=== PATIENT | male | born 1950 | race Caucasian/White ===

== ENCOUNTER 2020-01-26 14:04 | Emergency (ER) | payer MEDICARE, BC ==
[~2020-01-26] VITALS: Ht 180.3 cm; Wt 102.1 kg
[2020-01-26 14:05] VITALS: BP 146/82
[2020-01-26] MEDS ORDERED: oxyCODONE/APAP (5/325 MG) 1 UDTAB TABLET ONE (15:58)
[2020-01-26] MEDS ORDERED: oxyCODONE/APAP (5/325 MG) 1 UDTAB TABLET PO ONE (16:00)
--- NOTE | 2020-01-26 16:35 | NUR ---
Patient Dc home instruction given agrees to follow up PMD in 2 days noted sugar tong splint Rt arm.hand able to move fingers patient apprecaited and request for MD for more concern Dr. Briseno aware .
--- NOTE | 2020-01-26 16:44 | NUR ---
Patient discharged to home in stable condition. Written and verbal after care instructions given. Patient verbalizes understanding of instruction.
== END 2020-01-26 16:46 | disposition home or self-care (01) ==
LOC: ER 14:16
DX: S52.571A Other intraarticular fracture of lower end of right radius, initial encounter for closed fracture (principal); S80.02XA Contusion of left knee, initial encounter; S00.81XA Abrasion of other part of head, initial encounter; S50.811A Abrasion of right forearm, initial encounter; M79.89 Other specified soft tissue disorders; V19.88XA Pedal cyclist (driver) (passenger) injured in other specified transport accidents, initial encounter; Y93.55 Activity, bike riding; Y92.832 Beach as the place of occurrence of the external cause; Y99.8 Other external cause status
CPT/HCPCS: 73090-TC; 73110; 73564-TC